=== PATIENT | female | born 1950 | race Caucasian/White ===

== ENCOUNTER 2019-08-23 05:26 | Emergency (ER) | payer OTHER, MEDICARE ==
[~2019-08-23] VITALS: Ht 167.6 cm; Wt 127.0 kg
[2019-08-23] MEDS ORDERED: CELE100 PO (05:47)
[2019-08-23] MEDS ORDERED: Lopressor 50 mg50 MG PO (05:47)
[2019-08-23] MEDS ORDERED: DULO60 PO (05:47)
[2019-08-23] MEDS ORDERED: PREG100 PO (05:47)
[2019-08-23] MEDS ORDERED: CYCL10 PO (05:48)
[2019-08-23] MEDS ORDERED: LISI20 PO (05:48)
[2019-08-23 06:24] LABS: BASOPHILS ABSOLUTE AUTO 0.03 K/mm3 (0.00-0.23); BASOPHILS PERCENT AUTO 1 % (0-2); EOSINOPHILS ABSOLUTE AUTO 0.09 K/mm3 (0.00-0.68); EOSINOPHILS PERCENT AUTO 2 % (0-6); Hematocrit 44.1 % (33.0-51.0); Hemoglobin 14.8 g/dL (11.5-16.0); IMMATURE GRAN ABSOLUTE AUTO 0.03 K/mm3 (0.00-0.10); IMMATURE GRAN PERCENT AUTO 1 % (0-1); LYMPHOCYTES PERCENT AUTO 29 % (21-46); MONOCYTES ABSOLUTE AUTO 0.77 K/mm3 (0.16-1.47); MONOCYTES PERCENT AUTO 13 % (4-13); Mean Corpuscular HGB 30.2 pg (26.0-34.0); Mean Corpuscular HGB Conc 33.6 g/dL (31.5-36.5); Mean Corpuscular Volume 90 fL (80-100); Mean Platelet Volume 9.6 fL (9.1-12.4); NEUTROPHILS ABSOLUTE AUTO 3.27 K/mm3 (1.96-9.15); NEUTROPHILS PERCENT AUTO 56 % (41-73); Platelet Count 214 K/mm3 (150-400); RDW Coefficient Variation 13.2 % (11.7-14.2); RDW Standard Deviation 43.8 fL (35.1-46.3); White Blood Cell Count 5.89 K/mm3 (4.00-11.30)
[2019-08-23 06:42] LABS: Alanine Aminotransfer (ALT/SGP 37 U/L (12-78); Albumin, Blood 3.2 g/dL (3.4-5.0); Albumin/Globulin Ratio 0.8 (0.8-1.8); Alk Phos 93 U/L (50-136); Anion Gap 6 mmol/L (6-16); Aspartate Aminotrans (AST/SGOT 28 U/L (12-37); Bilirubin, Total 0.5 mg/dL (0.1-1.0); Blood Urea Nitrogen 16 mg/dL (8-24); Bun/Creatinine Ratio 20.4 (12.0-20.0); CO2, Blood 24 mmol/L (21-32); Calcium, Blood 8.4 mg/dL (8.5-10.1); Chloride, Blood 111 mmol/L (98-108); Creatinine, Blood 0.78 mg/dL (0.40-1.00); Globulin, Blood 3.9 g/dL (2.2-4.0); Glomerular Filtration Rate >60 (60-); Glucose, Blood 91 mg/dL (70-99); Potassium, Blood 4.1 mmol/L (3.5-5.5); Sodium, Blood 141 mmol/L (136-145); Total Protein, Blood 7.1 g/dL (6.4-8.2)
[2019-08-23] MEDS ORDERED: Cipro500 MG PO (08:41)
[2019-08-23] MEDS ORDERED: Flagyl500 MG PO (08:41)
== END 2019-08-23 09:20 | disposition home or self-care (01) ==
LOC: ER 05:26
PROVIDERS: Emergency Medicine
DX: K52.9 Noninfective gastroenteritis and colitis, unspecified (principal); I10 Essential (primary) hypertension; F32.9 Major depressive disorder, single episode, unspecified; Z88.5 Allergy status to narcotic agent; Z79.899 Other long term (current) drug therapy
CPT/HCPCS: 36415; 74177; 80053; 83690; 85025; 96374; 99284-25; J2405; J7030; Q9967

== ENCOUNTER 2021-06-07 10:54 | Inpatient (IN) | payer MEDICARE, OTHER ==
[~2021-06-07] VITALS: Ht 167.6 cm; Wt 127.0 kg
[~2021-06-07 10:54] MED LIST: CELE100 PO; CYCL10 PO; Cipro500 MG PO; DULO60 PO; Flagyl500 MG PO; LISI20 PO; Lopressor 50 mg50 MG PO; PREG100 PO
[2021-06-07 11:50] LABS: Hematocrit 48.1 % (33.0-51.0); Hemoglobin 16.1 g/dL (11.5-16.0); Mean Corpuscular HGB 30.4 pg (26.0-34.0); Mean Corpuscular HGB Conc 33.5 g/dL (31.5-36.5); Mean Corpuscular Volume 91 fL (80-100); Mean Platelet Volume 9.8 fL (9.1-12.4); Platelet Count 95 K/mm3 (150-400); RDW Coefficient Variation 13.2 % (11.7-14.2); RDW Standard Deviation 44.5 fL (35.1-46.3); White Blood Cell Count 4.97 K/mm3 (4.00-11.30)
[2021-06-07 12:00] LABS: Alanine Aminotransfer (ALT/SGP 70 U/L (12-78); Albumin, Blood 3.3 g/dL (3.4-5.0); Albumin/Globulin Ratio 0.7 (0.8-1.8); Alk Phos 128 U/L (50-136); Anion Gap 10 mmol/L (6-16); Aspartate Aminotrans (AST/SGOT 98 U/L (12-37); Bilirubin, Total 0.9 mg/dL (0.1-1.0); Blood Urea Nitrogen 16 mg/dL (8-24); Bun/Creatinine Ratio 17.8 (12.0-20.0); CO2, Blood 23 mmol/L (21-32); Calcium, Blood 8.5 mg/dL (8.5-10.1); Chloride, Blood 100 mmol/L (98-108); Globulin, Blood 4.9 g/dL (2.2-4.0); Glomerular Filtration Rate >60 (60-); Glucose, Blood 144 mg/dL (70-99); Sodium, Blood 133 mmol/L (136-145); Total Protein, Blood 8.2 g/dL (6.4-8.2); Troponin I <0.015 ng/mL (0.000-0.040)
[2021-06-07 12:22] LABS: BAND PERCENT MAN 8 % (0-8); BASOPHILS PERCENT MAN 0 % (0-2); EOSINOPHILS PERCENT MAN 0 % (0-6); LYMPHOCYTES ABSOLUTE MAN 1.39 K/mm3 (0.84-5.20); LYMPHOCYTES PERCENT MAN 28 % (21-46); METAMYELOCYTE ABSOLUTE MAN 0.04 K/mm3 (0.00-0.00); METAMYELOCYTE PERCENT MAN 1 % (0-0); MONOCYTES ABSOLUTE MAN 0.69 K/mm3 (0.16-1.47); MONOCYTES PERCENT MAN 14 % (4-13); NEUTROPHILS ABSOLUTE MAN 2.83 K/mm3 (1.96-9.15); SEG NEUTROPHILS PERCENT MAN 49 % (41-73); TOTAL CELLS COUNTED 100
[2021-06-07 12:26] LABS: Influenza A, PCR NEGATIVE (NEGATIVE); Influenza B, PCR NEGATIVE (NEGATIVE); Resp Syncytial Virus, PCR NEGATIVE (NEGATIVE)
[2021-06-07 12:48] LABS: SARS-Cov-2 (COVID-19) PCR, MMC POSITIVE (NEGATIVE)
[2021-06-07 13:52] LABS: Source, Urine Clean Catch
[2021-06-07 13:57] LABS: Appearance, Urine Cloudy (Clear); Blood, Urine 4+ (Neg); Color, Urine Amber (P-Yellow); Glucose Qualitative, Urine Neg (Neg); Ketones, Urine 2+ (Neg); Leukocyte Esterase, Urine 1+ (Neg); Nitrite, Urine Pos (Neg); Protein, Urine 3+ (Neg); Specific Gravity, Urine 1.025 (1.003-1.022); Urobilinogen, Urine 2+ (Normal)
[2021-06-07 14:07] LABS: Bilirubin, Urine 2+ (Neg)
[2021-06-07 14:09] LABS: Granular Casts 0-2 /lpf (0)
[2021-06-07 14:10] LABS: Mucus Heavy (0-Heavy)
[2021-06-07 14:13] LABS: Bacteria Many /hpf; Squamous Epithelial Cells Few /hpf (Few)
[2021-06-07] MEDS ORDERED: METO50ER PO (16:28)
[2021-06-07] MEDS ORDERED: TRAM50 PO (16:30)
[2021-06-07] MEDS ORDERED: FURO20 PO (16:31)
[2021-06-07] MEDS ORDERED: KLOR-CON 1010 ME3 PO (16:33)
[2021-06-07] MEDS ORDERED: ABILIFY MYCITE2 M2 PO (16:34)
--- NOTE | 2021-06-08 03:38 | NUR ---
VITAL SIGNS TAKEN, NOTE IRREG HR. CALL PLACED TO MD WALTER ORDERED MED TELE AND TO MONITOR AND EVAL FOR MEDICATIONS. CALL LIGHT IN REACH
--- NOTE | 2021-06-08 04:23 | NUR ---
med tele applied. sinus tach at 126. MD to assess tele. Call light in reach.
[2021-06-08 04:48] LABS: Hematocrit 46.3 % (33.0-51.0); Hemoglobin 15.1 g/dL (11.5-16.0); Mean Corpuscular HGB 29.7 pg (26.0-34.0); Mean Corpuscular HGB Conc 32.6 g/dL (31.5-36.5); Mean Corpuscular Volume 91 fL (80-100); Platelet Count 103 K/mm3 (150-400); RDW Standard Deviation 43.9 fL (35.1-46.3); Red Blood Cell Count 5.08 M/mm3 (3.80-5.20); White Blood Cell Count 4.06 K/mm3 (4.00-11.30)
--- NOTE | 2021-06-08 05:08 | NUR ---
SHIFT SUMMARY' COVID POSITIVE. POSSIBLE CDIFF. GIVEN FIRST DOSE OF REMDEZEVIR YESTERDAY. PT IS A STANDBY ASSIST. PLACED ON TELE FOR IRREGULAR HR. PTS BOTTOM IS RED FROM DIARRHEA PER DAY SHIFT RN. PT HAD DIARRHEA YESTERDAY. PT HAS HX OF CHF. A&O. CALL LIGHT WITHIN REACH AND WILL CONTINUE TO MONITOR.
[2021-06-08 05:11] LABS: Alanine Aminotransfer (ALT/SGP 61 U/L (12-78); Albumin, Blood 2.9 g/dL (3.4-5.0); Albumin/Globulin Ratio 0.7 (0.8-1.8); Alk Phos 115 U/L (50-136); Anion Gap 8 mmol/L (6-16); Aspartate Aminotrans (AST/SGOT 85 U/L (12-37); Bilirubin, Total 0.7 mg/dL (0.1-1.0); Blood Urea Nitrogen 26 mg/dL (8-24); CO2, Blood 23 mmol/L (21-32); Calcium, Blood 8.2 mg/dL (8.5-10.1); Chloride, Blood 103 mmol/L (98-108); Creatinine, Blood 0.87 mg/dL (0.40-1.00); Globulin, Blood 3.9 g/dL (2.2-4.0); Glomerular Filtration Rate >60 (60-); Glucose, Blood 256 mg/dL (70-99); Magnesium, Blood 2.1 mg/dL (1.6-2.4); Potassium, Blood 4.3 mmol/L (3.5-5.5); Sodium, Blood 134 mmol/L (136-145); Total Protein, Blood 6.8 g/dL (6.4-8.2)
--- NOTE | 2021-06-08 18:21 | NUR ---
SHIFT SUMMARY PATIENT IS ALERT AND ORIENTED 2-3. SLOW TO RESPOND TO QUESTIONS.PATIENT IS ON 3 LITERS OF OXYGEN AND SATTING ABOVE 91. PATIENT HAS HAD ELEVATED HR THE FIRST HALF OF SHIFT, OF WHICH HAS TRENDED TO UPPER 90S, LOWER 100S LAST TWO HRS. NO OTHER ACUTE EVENTS THIS SHIFT. VITAL SIGNS REVIEWED. WILL MONITOR UNTIL SHIFT CHANGE.
--- NOTE | 2021-06-09 03:57 | NUR ---
SHIFT SUMMARY PT UP TO BEDSIDE COMMODE THIS EVENING. PT ALSO ASKS FOR CRACKERS AND PEANUT BUTTER, STS THAT SHE HAS NOT BEEN EATING MUCH DURING THE DAY. PT MEDICATED PER EMAR. PT STILL ON TELE. VSS. CALL LIGHT WITHIN REACH AND WILL CONTINUE TO MONITOR.
--- NOTE | 2021-06-09 16:57 | NUR ---
SHIFT SUMMARY PATIENT IS ALERT AND ORIENTED X2-3. PATIENT IS A ONE PERSON ASSIST TO BEDSIDE COMMODE. PATIENT HAS BEEN MEDICATED PER EMAR. PATIENT HAS COMPLAINED ON PAIN ONCE THIS SHIFT AND MEDICATED WITH TYLENOL. NO OTHER COMPLAINTS OF SOB, NAUSEA, VOMITTING. VITAL SIGNS REVIEWED. CALL LIGHT IN PLACE. WILL MONITOR UNTIL SHIFT CHANGE.
--- NOTE | 2021-06-10 06:08 | NUR ---
SHIFT SUMMARY AOX3-SELF, PLACE, DATE. STATES SHE FEELS MORE CONFUSED & FORGETFUL THEN USUAL. FOLLOWS DIRECTIONS. VSS. TELE AFIB @97. SPO2 @94% ON 3L O2. DENIES DYSPNEA @REST. E/U RESP. LS DIM T/O. DENIES N/V. REPORTS BACK PAIN & PAIN c COUGHING, MEDICATED 1X c TRAMADOL & PT ABLE TO REST WELL T/O NIGHT. CALL LIGHT IN REACH. WCTM UNTIL DAY NURSE ASSUMES CARE.
--- NOTE | 2021-06-10 18:24 | NUR ---
SHIFT SUMMARY; PATIENT UP TO CHAIR X 2 TODAY. MEDICATED FOR PAIN X 1. RECEIVED HER 2ND DOSE OF REMDISIVIR AND 2 MORE ARE SCHEDULED. PATIENT IS CONCERNED THAT SHE LIVES ALONE AND MAY NOT BE ABLE TO MANAGE. SHE IS INCONTINENT OF BOWEL AND BLADDER. SHE SAYS SHE LOOSES CONTROL OF HER BLADDER AND BOWELS WHEN SHE COUGHS. BRUISING NOTED TO HER BOTTOM AND HER LOWER BACK. ALSO BOTH LEGS FROM HIPS TO KNEES. ERICA BAUMAN RN
--- NOTE | 2021-06-11 04:26 | NUR ---
SHIFT SUMMARY A/OX3, SBA TO BSC. SLEPT T/O NIGHT. DENIES PAIN. CURRENTLY ON 2L VIA NC. VSS, NO ACUTE CHANGES AT THIS TIME. BED IN LOWEST POSITION WITH CALL LIGHT IN REACH. WILL CONTINUE TO MONITOR AND REPORT TO ONCOMING RN.
[2021-06-11 05:52] LABS: Hemoglobin 15.5 g/dL (11.5-16.0); Mean Corpuscular HGB 30.2 pg (26.0-34.0); Mean Corpuscular HGB Conc 33.7 g/dL (31.5-36.5); Mean Corpuscular Volume 90 fL (80-100); Mean Platelet Volume 9.9 fL (9.1-12.4); Platelet Count 133 K/mm3 (150-400); RDW Coefficient Variation 12.6 % (11.7-14.2); RDW Standard Deviation 41.6 fL (35.1-46.3); Red Blood Cell Count 5.14 M/mm3 (3.80-5.20); White Blood Cell Count 8.47 K/mm3 (4.00-11.30)
[2021-06-11 06:55] LABS: Anion Gap 10 mmol/L (6-16); Blood Urea Nitrogen 25 mg/dL (8-24); Bun/Creatinine Ratio 39.2 (12.0-20.0); CO2, Blood 26 mmol/L (21-32); Calcium, Blood 8.5 mg/dL (8.5-10.1); Chloride, Blood 101 mmol/L (98-108); Creatinine, Blood 0.64 mg/dL (0.40-1.00); Glomerular Filtration Rate >60 (60-); Glucose, Blood 331 mg/dL (70-99); Potassium, Blood 4.7 mmol/L (3.5-5.5); Sodium, Blood 137 mmol/L (136-145)
--- NOTE | 2021-06-11 15:43 | NUR ---
REPORT TO [facility] TO MATA PORTILLO WHO WILL ASSUME COMFORT AND CARE OF THIS PATIENT TRANSFERRING TODAY AT 1630 VIA WHEEL CHAIR. PATIENT NOTIFIED AND HER BELONGINGS ARE GATHERED AND READY TO TRANSFER WITH HER. ERICA BAUMAN RN
[2021-06-11] MEDS ORDERED: CEPH500 PO (15:45)
[2021-06-11] MEDS ORDERED: GUAI600T33 PO (15:46)
[2021-06-11] MEDS ORDERED: HUMULIN R100 UNIT/2 SC (15:47)
[2021-06-11] MEDS ORDERED: XARELTO20 MG PO (15:48)
[2021-06-11] MEDS ORDERED: LISI20 PO (15:48)
== END 2021-06-11 16:23 | DRG 177 ==
LOC: ER 10:54 → MEDS 13:44
PROVIDERS: Nurse Practitioner Acute Care; Physician Assistant; ADMIT Internal Medicine
PROC: 8E0ZXY6 Isolation (ICD-10-PCS; principal; 2021-06-07)
PROC: XW033E5 Introduction of Remdesivir Anti-infective into Peripheral Vein, Percutaneous Approach, New Technology Group 5 (ICD-10-PCS; 2021-06-07)
PROC: 3E0333Z Introduction of Anti-inflammatory into Peripheral Vein, Percutaneous Approach (ICD-10-PCS; 2021-06-07)
DX: U07.1 COVID-19 (principal); J96.01 Acute respiratory failure with hypoxia; J12.82 Pneumonia due to coronavirus disease 2019; Z68.42 Body mass index [BMI] 45.0-49.9, adult; I50.42 Chronic combined systolic (congestive) and diastolic (congestive) heart failure; N30.00 Acute cystitis without hematuria; I48.91 Unspecified atrial fibrillation; I11.0 Hypertensive heart disease with heart failure; E66.01 Morbid (severe) obesity due to excess calories; E11.65 Type 2 diabetes mellitus with hyperglycemia; B96.20 Unspecified Escherichia coli [E. coli] as the cause of diseases classified elsewhere; F32.A Depression, unspecified; Z91.14 Patient's other noncompliance with medication regimen; Z90.49 Acquired absence of other specified parts of digestive tract; Z88.5 Allergy status to narcotic agent; Z79.2 Long term (current) use of antibiotics; Z79.899 Other long term (current) drug therapy
CPT/HCPCS: 0241U; 36415; 71045; 80048; 80053; 81001; 82947; 83036; 83735; 83880; 84484; 85025; 85027; 87077; 87086; 87186; 93005; 93010; 94760; 96374; 99285-25; A9270; J1100; J1650; J1815; J7030; J7050

== ENCOUNTER → 2021-06-21 | Outpatient (CLI) | payer MEDICARE, OTHER ==
[~2021-06-21] MED LIST changes: +ABILIFY MYCITE2 M2 PO; +CEPH500 PO; +FURO20 PO; +GUAI600T33 PO; +HUMULIN R100 UNIT/2 SC; +KLOR-CON 1010 ME3 PO; +METO50ER PO; +TRAM50 PO; +XARELTO20 MG PO
== END | disposition home or self-care (01) ==
LOC: LAB RH 09:02 → EDSTATUS 14:07
DX: E10.9 Type 1 diabetes mellitus without complications (principal)
CPT/HCPCS: 83036

== ENCOUNTER 2025-05-12 08:36 | Emergency (ER) | payer MEDICARE, OTHER ==
[~2025-05-12] VITALS: Ht 167.6 cm; Wt 104.3 kg
[~2025-05-12 08:36] MED LIST changes: +Crestor40 MG PO; +ESCI10 PO; +ESCITALOPRAM OXA5 MG; +IBUP800 PO; +Percocet 5-3251 EACH PO
[2025-05-12 09:26] LABS: BASOPHILS ABSOLUTE AUTO 0.04 K/mm3 (0.00-0.23); BASOPHILS PERCENT AUTO 1 % (0-2); EOSINOPHILS ABSOLUTE AUTO 0.12 K/mm3 (0.00-0.68); EOSINOPHILS PERCENT AUTO 2 % (0-6); Hematocrit 43.6 % (33.0-51.0); Hemoglobin 14.6 g/dL (11.5-16.0); IMMATURE GRAN ABSOLUTE AUTO 0.01 K/mm3 (0.00-0.10); IMMATURE GRAN PERCENT AUTO 0 % (0-1); LYMPHOCYTES ABSOLUTE AUTO 1.89 K/mm3 (0.84-5.20); LYMPHOCYTES PERCENT AUTO 25 % (21-46); MONOCYTES ABSOLUTE AUTO 0.89 K/mm3 (0.16-1.47); MONOCYTES PERCENT AUTO 12 % (4-13); Mean Corpuscular HGB Conc 33.5 g/dL (31.5-36.5); Mean Corpuscular Volume 91 fL (80-100); NEUTROPHILS ABSOLUTE AUTO 4.59 K/mm3 (1.96-9.15); NEUTROPHILS PERCENT AUTO 61 % (41-73); NRBC ABSOLUTE 0.00 K/mm3 (0.00-0.02); NRBC Auto 0.0 /100 WBC (0.0-0.2); Platelet Count 152 K/mm3 (150-400); RDW Coefficient Variation 12.6 % (11.7-14.2); RDW Standard Deviation 42.2 fL (35.1-46.3)
[2025-05-12 09:50] LABS: Alanine Aminotransfer (ALT/SGP 23.0 U/L (12-78); Albumin, Blood 3.7 g/dL (3.4-5.0); Albumin/Globulin Ratio 1.1 (0.8-1.8); Anion Gap 5.0 mmol/L (3-11); Aspartate Aminotrans (AST/SGOT 24.0 U/L (12-37); Bilirubin, Total 0.8 mg/dL (0.1-1.0); Blood Urea Nitrogen 12.0 mg/dL (8-24); CO2, Blood 28.0 mmol/L (21-32); Calcium, Blood 9.0 mg/dL (8.5-10.1); Chloride, Blood 109.0 mmol/L (98-108); Creatinine, Blood 0.83 mg/dL (0.40-1.00); Globulin, Blood 3.3 g/dL (2.2-4.0); Glucose, Blood 96.0 mg/dL (70-99); Potassium, Blood 4.0 mmol/L (3.5-5.5); Sodium, Blood 138.0 mmol/L (136-145); Total Protein, Blood 7.0 g/dL (6.4-8.2)
[2025-05-12 10:15] VITALS: BP 95/57
== END 2025-05-12 10:37 | disposition home or self-care (01) ==
LOC: ER 08:36
PROVIDERS: Physician Assistant
DX: R19.7 Diarrhea, unspecified (principal); I11.0 Hypertensive heart disease with heart failure; I50.9 Heart failure, unspecified; Z88.5 Allergy status to narcotic agent; Z79.899 Other long term (current) drug therapy
CPT/HCPCS: 80053; 85025; 99284; A9270